=== PATIENT | female | born 1985 | race Two or more races ===

== ENCOUNTER 2020-02-24 13:20 | Outpatient (CLI) | payer OTHER | END 2020-02-24 13:32 | disposition home or self-care (01) | LOC: SONOGRAMA 13:20 | PROVIDERS: ATTEND Obstetrics & Gynecology | DX: N60.12 Diffuse cystic mastopathy of left breast (principal); N60.11 Diffuse cystic mastopathy of right breast; N83.209 Unspecified ovarian cyst, unspecified side ==

== ENCOUNTER → 2020-04-02 | Outpatient (CLI) | payer OTHER | END | disposition home or self-care (01) | LOC: SONO 607 13:15 → SCREENING 13:15 | PROVIDERS: ATTEND Obstetrics & Gynecology | DX: N60.01 Solitary cyst of right breast (principal); N60.11 Diffuse cystic mastopathy of right breast; N60.12 Diffuse cystic mastopathy of left breast ==